=== PATIENT | female | born 1980 | race Caucasian/White ===

== ENCOUNTER 2018-01-18 13:57 | Emergency (ER) | payer MEDICAID ==
[~2018-01-18] VITALS: Ht 160 cm; Wt 66.7 kg
[2018-01-18 14:23] VITALS: BP_SYST 97
[2018-01-18 15:20] VITALS: BP_SYST 97
== END 2018-01-18 15:20 | disposition home or self-care (01) ==
LOC: SED 13:57
DX: G56.01 Carpal tunnel syndrome, right upper limb (principal); Z98.51 Tubal ligation status
CPT/HCPCS: 81025; 99283